=== PATIENT | male | born 1985 | race Caucasian/White ===

== ENCOUNTER 2020-08-07 13:19 | Emergency (ER) | payer SELFPAY ==
[~2020-08-07] VITALS: Ht 175.3 cm; Wt 65.8 kg
[2020-08-07] MEDS ORDERED: ONDANSETRON ODT4 MG PO (16:52)
== END 2020-08-07 17:01 | disposition home or self-care (01) ==
LOC: ED 13:19
DX: R11.10 Vomiting, unspecified (principal); F41.9 Anxiety disorder, unspecified; F32.9 Major depressive disorder, single episode, unspecified
CPT/HCPCS: 80053; 81001; 83690; 83735; 85025; 96374; 99284-25; J1630; J7030